=== PATIENT | male | born 1955 | race African-American/Black ===

== ENCOUNTER 2017-11-23 15:24 | Inpatient (IN) | payer BC, OTHER ==
[2017-11-23] MEDS: IPRATRPIUM/ALBUTEROL 0.5/2.5MG 3 ML NEBU. NEB ×2 (15:45→20:00)
[2017-11-23 15:47] LABS: ADD MAN DIFF? NO
[2017-11-23 15:51] LABS: BASO % 0 % (0-3); EOS % 0 % (0-3); HEMATOCRIT 44.7 % (39.0-53.0); HEMOGLOBIN 14.9 g/dL (13.0-17.5); LYMPH # 0.8 x10^3/uL (1.0-4.8); LYMPH % 15 % (24-48); MEAN CORPUSCULAR HEMOGLOBIN 31 pg (25-35); MEAN CORPUSCULAR HGB CONC 33 g/dL (31-37); MEAN CORPUSCULAR VOLUME 94 fL (79-100); MONO # 0.2 x10^3/uL (0.0-1.1); MONO % 4 % (0-9); NEUT # 4.5 x10^3uL (1.8-7.7); NEUT % 81 % (31-73); PLATELET COUNT 240 x10^3/uL (140-400); RED BLOOD COUNT 4.77 x10^6/uL (4.30-5.70); RED CELL DISTRIBUTION WIDTH 13.4 % (11.5-14.5); WHITE BLOOD COUNT 5.5 x10^3/uL (4.0-11.0)
[2017-11-23 16:09] LABS: ANION GAP 10 (6-14); BLOOD UREA NITROGEN 23 mg/dL (8-26); CALCIUM 9.1 mg/dL (8.5-10.1); CARBON DIOXIDE 29 mmol/L (21-32); CHLORIDE 96 mmol/L (98-107); CREATININE 1.2 mg/dL (0.7-1.3); GFR 74.7; GLUCOSE 176 mg/dL (70-99); POTASSIUM 4.3 mmol/L (3.5-5.1); SODIUM 135 mmol/L (136-145)
[2017-11-23 16:14] LABS: ALBUMIN 3.5 g/dL (3.4-5.0); ALK PHOS 91 U/L (46-116); ALT (SGPT) 69 U/L (16-63); AST (SGOT) 63 U/L (15-37); DIRECT BILIRUBIN 0.1 mg/dL (0.0-0.2); LIPASE 77 U/L (73-393); TOTAL BILIRUBIN 0.7 mg/dL (0.2-1.0); TOTAL PROTEIN 8.1 g/dL (6.4-8.2)
[2017-11-23 16:17] LABS: TROPONINI < 0.017 ng/mL (0.000-0.055)
[2017-11-23 16:19] LABS: NT-PRO BNP 47 pg/mL (0-124)
[2017-11-23] MEDS: methylPREDNISolone SOD SUCC PF 125 MG/2 ML VIAL. IV (16:44)
[2017-11-23] MEDS ORDERED: MORPHINE SULFATE 4 MG/ML DISP.SYRIN. IV ×2 (16:45→17:15)
[2017-11-23] MEDS ORDERED: ONDANSETRON PF 4 MG/2 ML VIAL. IV ×2 (16:45→17:15)
[2017-11-23] MEDS: IV NORMAL SALINE 1000ML BAG 1,000 ML IV (16:48)
[2017-11-23] MEDS ORDERED: ACETAMINOPHEN 325 MG TABLET. PO (17:15)
[2017-11-23] MEDS ORDERED: hydrALAZINE 20 MG/ML VIAL. IVP (17:15)
[2017-11-23] MEDS ORDERED: DOCUSATE SODIUM 100 MG CAPSULE. PO (17:15)
[2017-11-23] MEDS ORDERED: traMADol 50 MG TABLET PO (17:15)
[2017-11-23] MEDS ORDERED: MAGNESIUM HYDROXIDE 2,400 MG/30 ML ORAL.SUSP. PO (18:00)
[2017-11-23 19:55] LABS: TROPONINI < 0.017 ng/mL (0.000-0.055)
[2017-11-23] MEDS: SENNOSIDES/DOCUSATE 8.6/50MG TABLET. PO (21:01)
[2017-11-23] MEDS: DOCUSATE SODIUM 100 MG CAPSULE. PO (21:01)
[2017-11-23] MEDS: LACTOBACILLUS RHAMNOSUS GG 1 CAPSULE. PO (21:01)
[2017-11-23] MEDS: TAMSULOSIN 0.4 MG CAP.ER.24H. PO (21:01)
[2017-11-23] MEDS: FAMOTIDINE 20 MG TABLET. PO (21:02)
[2017-11-23] MEDS: DOXYCYCLINE HYCLATE 100 MG TABLET PO (21:02)
[2017-11-23] MEDS: methylPREDNISolone SOD SUCC PF 40 MG/ML VIAL. IV (21:03)
[2017-11-23] MEDS: ENOXAPARIN 40 MG/0.4 ML SYRINGE. SQ (21:03)
[2017-11-23 21:45] LABS: INFLUENZA A PATIENT NEGATIVE (NEGATIVE); INFLUENZA B PATIENT NEGATIVE (NEGATIVE); OBC FLU VALID
[2017-11-23 23:08] LABS: TROPONINI < 0.017 ng/mL (0.000-0.055)
[2017-11-24] MEDS: ALBUTEROL SULFATE 2.5 MG/3 ML NEBU. NEB (03:42)
[2017-11-24] MEDS: IV NORMAL SALINE 1000ML BAG 1,000 ML IV ×2 (04:09→06:00)
[2017-11-24 05:20] LABS: ADD MAN DIFF? NO
[2017-11-24 05:30] LABS: BASO % 0 % (0-3); EOS % 0 % (0-3); HEMATOCRIT 39.9 % (39.0-53.0); HEMOGLOBIN 13.4 g/dL (13.0-17.5); LYMPH # 0.8 x10^3/uL (1.0-4.8); LYMPH % 15 % (24-48); MEAN CORPUSCULAR HEMOGLOBIN 31 pg (25-35); MEAN CORPUSCULAR HGB CONC 34 g/dL (31-37); MEAN CORPUSCULAR VOLUME 93 fL (79-100); MONO # 0.4 x10^3/uL (0.0-1.1); MONO % 6 % (0-9); NEUT # 4.4 x10^3uL (1.8-7.7); NEUT % 79 % (31-73); PLATELET COUNT 205 x10^3/uL (140-400); RED BLOOD COUNT 4.32 x10^6/uL (4.30-5.70); RED CELL DISTRIBUTION WIDTH 13.3 % (11.5-14.5); WHITE BLOOD COUNT 5.5 x10^3/uL (4.0-11.0)
[2017-11-24 05:46] LABS: ANION GAP 6 (6-14); BLOOD UREA NITROGEN 18 mg/dL (8-26); CALCIUM 9.2 mg/dL (8.5-10.1); CARBON DIOXIDE 32 mmol/L (21-32); CHLORIDE 101 mmol/L (98-107); CREATININE 0.9 mg/dL (0.7-1.3); GFR 104.2; GLUCOSE 129 mg/dL (70-99); POTASSIUM 4.6 mmol/L (3.5-5.1); SODIUM 139 mmol/L (136-145)
[2017-11-24] MEDS: methylPREDNISolone SOD SUCC PF 40 MG/ML VIAL. IV ×3 (06:00→20:56)
[2017-11-24] MEDS: IPRATRPIUM/ALBUTEROL 0.5/2.5MG 3 ML NEBU. NEB ×4 (08:07→19:42)
[2017-11-24] MEDS: LACTULOSE 20 GM/30 ML SOLUTION. PO (09:11)
[2017-11-24] MEDS: DOXYCYCLINE HYCLATE 100 MG TABLET PO ×2 (09:11→20:55)
[2017-11-24] MEDS: DOCUSATE SODIUM 100 MG CAPSULE. PO ×2 (09:11→20:55)
[2017-11-24] MEDS: SENNOSIDES/DOCUSATE 8.6/50MG TABLET. PO ×2 (09:11→20:56)
[2017-11-24] MEDS: LACTOBACILLUS RHAMNOSUS GG 1 CAPSULE. PO ×2 (09:11→20:56)
[2017-11-24] MEDS: TAMSULOSIN 0.4 MG CAP.ER.24H. PO (09:12)
[2017-11-24] MEDS ORDERED: CONTRAST GIVEN MC (13:15)
[2017-11-24 13:27] LABS: BASE EXCESS ABG 4 mmol/L (-3-3); HCO3 ABG 29 mmol/L (21-28); PO2 ABG 72 mmHg (65-108); SAT O2 ABG 93 % (92-99)
[2017-11-24 13:30] LABS: PCO2 ABG 47 mmHg (35-46); PH ABG 7.41 (7.35-7.45)
[2017-11-24] MEDS: IOHEXOL 300 MG/ML 100ML VIAL. IV (13:30)
[2017-11-24 13:31] LABS: FIO2 ABG 34
[2017-11-24] MEDS: ENOXAPARIN 40 MG/0.4 ML SYRINGE. SQ (15:34)
[2017-11-24] MEDS: ACETYLCYSTEINE 20% 800 MG/4 ML VIAL. INH (19:42)
[2017-11-24] MEDS: FAMOTIDINE 20 MG TABLET. PO (20:56)
[2017-11-25] MEDS: methylPREDNISolone SOD SUCC PF 40 MG/ML VIAL. IV ×2 (06:41→20:33)
[2017-11-25] MEDS: IPRATRPIUM/ALBUTEROL 0.5/2.5MG 3 ML NEBU. NEB ×4 (08:01→20:46)
[2017-11-25] MEDS: LACTOBACILLUS RHAMNOSUS GG 1 CAPSULE. PO ×2 (08:34→20:34)
[2017-11-25] MEDS: DOXYCYCLINE HYCLATE 100 MG TABLET PO ×2 (08:34→20:34)
[2017-11-25] MEDS: SENNOSIDES/DOCUSATE 8.6/50MG TABLET. PO ×2 (08:34→20:34)
[2017-11-25] MEDS: DOCUSATE SODIUM 100 MG CAPSULE. PO ×2 (08:34→21:00)
[2017-11-25] MEDS: TAMSULOSIN 0.4 MG CAP.ER.24H. PO (08:34)
[2017-11-25] MEDS: LACTULOSE 20 GM/30 ML SOLUTION. PO (08:41)
[2017-11-25] MEDS: ALBUTEROL SULFATE 2.5 MG/3 ML NEBU. NEB (13:44)
[2017-11-25] MEDS ORDERED: CALCIUM CARBONATE 500 MG TAB.CHEW PO (15:30)
[2017-11-25] MEDS: CALCIUM CARBONATE 500 MG TAB.CHEW PO (15:40)
[2017-11-25] MEDS: ENOXAPARIN 40 MG/0.4 ML SYRINGE. SQ (15:41)
[2017-11-25] MEDS ORDERED: CALCIUM CARBONATE 500 MG TABLET PO (18:00)
[2017-11-25] MEDS: FAMOTIDINE 20 MG TABLET. PO (20:34)
[2017-11-26] MEDS: IPRATRPIUM/ALBUTEROL 0.5/2.5MG 3 ML NEBU. NEB ×2 (07:50→11:23)
[2017-11-26] MEDS: DOCUSATE SODIUM 100 MG CAPSULE. PO (08:54)
[2017-11-26] MEDS: SENNOSIDES/DOCUSATE 8.6/50MG TABLET. PO (08:54)
[2017-11-26] MEDS: DOXYCYCLINE HYCLATE 100 MG TABLET PO (08:55)
[2017-11-26] MEDS: TAMSULOSIN 0.4 MG CAP.ER.24H. PO (08:55)
[2017-11-26] MEDS: LACTOBACILLUS RHAMNOSUS GG 1 CAPSULE. PO (08:55)
[2017-11-26] MEDS: methylPREDNISolone SOD SUCC PF 40 MG/ML VIAL. IV (08:56)
== END 2017-11-26 11:30 | disposition home or self-care (01) | DRG 189 ==
LOC: ER 15:24 → 6 SOUTH 16:39
DX: J96.01 Acute respiratory failure with hypoxia (principal); J44.0 Chronic obstructive pulmonary disease with (acute) lower respiratory infection; J44.1 Chronic obstructive pulmonary disease with (acute) exacerbation; N40.0 Benign prostatic hyperplasia without lower urinary tract symptoms; J20.9 Acute bronchitis, unspecified; Z87.891 Personal history of nicotine dependence; Z82.49 Family history of ischemic heart disease and other diseases of the circulatory system
CPT/HCPCS: 36415; 36600; 71045; 71275; 80048; 80076; 82805; 83690; 83880; 84484; 85025; 87804; 87804-59; 93005; 93306; 94060; 94618; 94640; 94667; 94668; 94729; 94760; 96374; 99285; 99285-25; J1650; J2920; J2930; J7030; J7613; J7620; Q9967